=== PATIENT | female | born 1980 ===

== ENCOUNTER 2017-11-30 17:31 | Emergency (ER) | payer OTHER ==
--- OUTSIDE RECORDS SUMMARY | 2017-11-30 17:33 | XMS REPORT | Clinical Summary ---
:1980 Author Organization [facility] Address [address] [place] [address] Care Team Providers Name Role Phone Asked, No Pcp Primary Care Provider Unavailable Allergies No Known Allergies Current Medications Prescription Sig. Disp. Refills Start Date End Date Status butalbital-acetamino Take 1 tablet by 12 tablet 0 04/25/2017 05/25/2017 phen-caff (ESGIC) mouth every 4 50-325-40 mg per (four) hours as tablet needed for headaches for up to 30 days. Active Problems Not on file Encounters Date Type Specialty Care Team Description 04/25/2017 Emergency Emergency Medicine Huan Grant MD Closed head injury, initial encounter (Primary Dx) after 11/29/2016 Social History Tobacco Use Types Packs/Day Years Used Date Current Every Day Smoker Alcohol Use Drinks/Week oz/Week Comments No Sex Assigned at Date Recorded Not on file Last Filed Vital Signs Vital Sign Reading Time Taken Blood Pressure 112/77 04/25/2017 3:04 AM CDT Pulse 67 04/25/2017 3:04 AM CDT Temperature 36.1 C (97 F) 04/25/2017 3:04 AM CDT Respiratory Rate 16 04/25/2017 3:04 AM CDT Oxygen Saturation 98% 04/25/2017 3:04 AM CDT Inhaled Oxygen Concentration - - Weight - - Height 162.6 cm (5' 4") 04/25/2017 12:16 AM CDT Body Mass Index - - Plan of Treatment Health Maintenance Due Date Last Done Comments PAP SMEAR 2003 INFLUENZA VACCINE 04/14/[address] Head Wo Contrast (04/25/2017 2:21 AM) Specimen Performing Laboratory [facility] [address] [place] [address] Narrative EXAM: CT HEAD WO CONTRAST CLINICAL HISTORY: HEAD INJURY MODERATE OR SEVERE ACUTESTABLE TECHNIQUE: Noncontrast enhanced images of the brain were obtained from the skull base to the vertex. Both soft tissue and bone reconstruction algorithms were performed. CT scans are performed using radiation dose reduction techniques (iterative reconstruction and/or automated exposure control). Technical factors are evaluated and adjusted to ensure appropriate moderation of exposure. Automated dose management technology is applied to adjust radiation exposure while achieving a diagnostic quality image. COMPARISON:None. FINDINGS: Ventricles are normal in size and configuration. The anthony-white matter differentiation is preserved and without evidence of acute territorial infarction. There is no evidence for acute intracranial hemorrhage, mass, mass effect, hydrocephalus, or extra-axial fluid collection. Orbits are unremarkable. Patchy opacities are identified within the bilateral ethmoid air cells. Paranasal sinuses are otherwise clear. Mastoid air cells are normally pneumatized.Osseous structures are intact. IMPRESSION: No CT evidence for acute intracranial abnormality. [facility]-[id number] Procedure Note [facility], Radiology Results Incoming - 04/25/2017 2:36 AM CDT EXAM: CT HEAD WO CONTRAST CLINICAL HISTORY: HEAD INJURY MODERATE OR SEVERE ACUTE STABLE TECHNIQUE: Noncontrast enhanced images of the brain were obtained from the skull base to the vertex. Both soft tissue and bone reconstruction algorithms were performed. CT scans are performed using radiation dose reduction techniques (iterative reconstruction and/or automated exposure control). Technical factors are evaluated and adjusted to ensure appropriate moderation of exposure. Automated dose management technology is applied to adjust radiation exposure while achieving a diagnostic quality image. COMPARISON: None. FINDINGS: Ventricles are normal in size and configuration. The anthony-white matter differentiation is preserved and without evidence of acute territorial infarction. There is no evidence for acute intracranial hemorrhage, mass, mass effect, hydrocephalus, or extra-axial fluid collection. Orbits are unremarkable. Patchy opacities are identified within the bilateral ethmoid air cells. Paranasal sinuses are otherwise clear. Mastoid air cells are normally pneumatized. Osseous structures are intact. IMPRESSION: No CT evidence for acute intracranial abnormality. [facility]-[id number] hCG qualitative, urine screen (04/25/2017 1:35 AM) Component Value Ref Range hCG qualitative, urine NegativeComment: Sensitivity of HCG test: 25 mIU/mL Specimen Performing Laboratory Urine [facility] [id number] [place] [address] after 11/29/2016 Insurance Payer Benefit Plan / Group Subscriber ID Type Phone Address [employer] C[employer] OPEN ACCESS/NETWORK xxxxxxxxxxx O
[2017-11-30 20:07] LABS: Bicarbonate 24 mEq/L (21-31); Glucose Level 84 mg/dL (65-120); Potassium 3.8 mEq/L (3.6-5.0); Sodium Level 139 mEq/L (135-145)
[2017-11-30 20:08] LABS: BUN Blood Urea Nitrogen 12 mg/dL (6-20); Glomerular Filtration Rate > 90 mL/min (=/>90)
--- NOTE | 2017-11-30 20:11 | RAD REPORT ---
EXAM DESCRIPTION: CT - Head Brain Wo Cont - 11/30/2017 7:51 pm CLINICAL HISTORY: Headache COMPARISON: None. TECHNIQUE: Axial 5 mm thick images of the head were obtained without IV contrast. All CT scans are performed using dose optimization technique as appropriate and may include automated exposure control or mA/KV adjustment according to patient size. FINDINGS: No intracranial hemorrhage, mass, edema or shift of mid-line structures. No acute infarcti on changes seen. No abnormal extra-axial fluid collections. Ventricles are normal. Mastoid air cells and visualized portions of the paranasal sinuses are clear. No acute bony findings. IMPRESSION: Negative non-contrast CT head examination.
[2017-11-30 20:13] LABS: Absolute Lymphocytes (CBC) 3.2 K/uL (0.7-4.9); Absolute Monocytes 0.7 K/uL (0.1-1.3); Absolute Neutrophil 2.7 K/uL (1.8-8.0); Basophils % 1.7 % (0-1.3); Eosinophils % 2.7 % (0-4.4); Hematocrit 40.5 % (36.0-45.0); Lymphocytes % 46.8 % (15.3-44.8); MCH 33.1 pg (27.0-35.0); MPV 9.5 fL (7.6-11.3); Monocytes % 9.9 % (3.3-12.3); RBC Red Blood Cell Count 4.22 M/uL (3.86-4.86)
[2017-11-30 20:48] LABS: Urine Bacteria <20 /HPF (<20); Urine Culture Reflex Order NOT NEEDED; Urine RBC <5 /HPF (NONE SEEN)
[2017-11-30 20:51] LABS: Urine Blood TRACE (NEG); Urine Glucose NEGATIVE (NEG); Urine Protein NEGATIVE (NEG)
[2017-11-30 21:00] LABS: Blood Morphology Comment NOT SEEN (NOT SEEN); Platelet Estimate ADEQ; Urine White Blood Cell Casts OK
--- NOTE | 2017-11-30 21:26 | ER ---
Nurse's Notes [facility] Name: Patric Lin Age: 37 yrs Sex: Female : 1980 Arrival Date: 11/30/2017 Time: 17:34 Bed 16 Private MD: Sean Mckeon Diagnosis: Headache;Seasonal Allergies;Infectious mononucleosis Presentation: 11/30 17:40 Presenting complaint: Patient states: Reports headache to back of head and "cloudy aj vision" since Thursday. Ambulated with steady gait to triage. Transition of care: patient was not received from another setting of care. Onset of symptoms was November 28, 2017. Care prior to arrival: None. 17:40 Method Of Arrival: Ambulatory aj 17:40 Acuity: NISSA 3 aj Triage Assessment: 17:42 Headache History: The patient has had previous headaches. General: Appears in no aj apparent distress. comfortable, Behavior is calm, cooperative, appropriate for age. Pain: Complains of pain in occipital area and base of the skull Pain currently is 5 out of 10 on a pain scale. Pain began 2-3 days ago. Also complains of no other associated symptoms. Neuro: Level of Consciousness is awake, alert, obeys commands, Oriented to person, place, time, situation, Supervisor Dyer are equal bilaterally Moves all extremities. Full function Gait is steady, Speech is normal, Facial symmetry appears normal, Reports headache. Respiratory: Airway is patent Respiratory effort is even, unlabored, Respiratory pattern is. Derm: Skin is intact, is healthy with good turgor, Skin is pink, warm \\T\\ dry. normal. 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 - Social history:: Smoking status: Patient/guardian denies using tobacco. - Family history:: not pertinent. - Hospitalizations: : No recent hospitalization is reported. Screenin:12 Abuse screen: Denies threats or abuse. Denies injuries from another. Nutritional tc3 screening: No deficits noted. Tuberculosis screening: No symptoms or risk factors identified. Fall Risk None identified. Assessment: 19:37 General: Appears in no apparent distress. uncomfortable, Behavior is calm, cooperative. ar4 Pain: Complains of pain in occipital area and base of skull Pain radiates to Pt. reports, "The pain began earlier this morning and started in the front of my head and has moved to the back of my head now." Pain currently is 5 out of 10 on a pain scale. Quality of pain is described as heavy, pressure, throbbing, Pain began Pt. reports, "The pain began around 10:00 this morning, while I was at work." Is continuous, Alleviated by nothing. Aggravated by increased activity, Also complains of Pt. reports, "I have had diarrhea since Thursday and have just felt very tired and exhausted ever since.". Neuro: Level of Consciousness is awake, alert, obeys commands, Oriented to person, place, time, situation, Supervisor Dyer are equal bilaterally Moves all extremities. Speech is normal, Facial symmetry appears normal, Pupils are PERRLA. Neuro: Cardiovascular: Reports fatigue, Denies chest pain, shortness of breath, Heart tones S1 S2 present Capillary refill < 3 seconds is brisk in left fingers Patient's skin is warm and dry. Pulses are all present. Rhythm is sinus rhythm Chest pain is denied. Respiratory: Airway is patent Breath sounds are clear bilaterally. GI: Abdomen is flat, non-distended, Bowel sounds present X 4 quads. Abd is soft and non tender X 4 quads. GI: Reports diarrhea, Patient currently denies vomiting. : No signs and/or symptoms were reported regarding the genitourinary system. EENT: No signs and/or symptoms were reported regarding the EENT system. Derm: Skin is intact, is healthy with good turgor, Skin is dry, Skin is normal, Skin temperature is warm. Musculoskeletal: Range of motion: intact in all extremities. 20:29 Reassessment: Patient appears in no apparent distress at this time. No changes from tc3 previously documented assessment. Patient and/or family updated on plan of care and expected duration. Pain level reassessed. Patient is alert, oriented x 3, equal unlabored respirations, skin warm/dry/pink. Vital Signs: 17:42 BP 114 / 74; Pulse 80; Resp 16; Temp 98.4; Pulse Ox 98% on R/A; Weight 67.13 kg; Height aj 5 ft. 4 in. (162.56 cm); Pain 5/10; 19:10 BP 122 / 81; Pulse 61; Resp 18; Temp 98.3; Pulse Ox 98% on R/A; tc3 19:37 BP 116 / 81 RA Sitting (auto/); Pulse 67; Resp 16; Temp 98.3(O); Pulse Ox 100% on R/A; ar4 Pain 5/10; 20:41 BP 118 / 80; Pulse 63; Resp 16; Pulse Ox 98% on R/A; Pain 5/10; tc3 21:40 BP 114 / 82; Pulse 64; Resp 18; Pulse Ox 100% on R/A; ar4 17:42 Body Mass Index 25.40 (67.13 kg, 162.56 cm) aj [place] Coma Score: 21:21 Eye Response: spontaneous(4). Verbal Response: oriented(5). Motor Response: obeys rn commands(6). Total: 15. ED Course: 17:34 Patient arrived in ED. mr 17:34 Sean Mckeon MD is Private Physician. mr 17:42 Triage completed. aj 17:42 Arm band placed on right wrist. Patient placed in an exam room. aj 19:09 Suman Vera MD is Attending Physician. rn 19:12 Amira Rolon RN is Primary Nurse. tc3 19:13 Patient has correct armband on for positive identification. Bed in low position. Call tc3 light in reach. Side rails up X2. Pulse ox on. NIBP on. Verbal reassurance given. Pillow given. 19:40 Inserted saline lock: 20 gauge in right antecubital area, using aseptic technique. jb5 Blood collected. 19:41 Influenza Screen (a \\T\\ B) Sent. jb5 19:41 Strep Sent. jb5 19:41 Basic Metabolic Panel Sent. jb5 19:41 CBC with Diff Sent. jb5 19:52 CT completed. Patient tolerated procedure well. Patient moved to [place] via wheelchair. ga Patient moved back from IN. 20:08 Urine collected: clean catch specimen, clear. ar4 20:09 [place] Screen Profile Sent. tc3 20:43 Urine Microscopic Only Sent. tc3 21:23 Urine Dipstick--Ancillary (enter results) Sent. tc3 21:23 Urine --Ancillary (enter results) Sent. tc3 21:25 Sean Mckeon MD is Referral Physician. rn 21:40 IV discontinued, intact, bleeding controlled, No redness/swelling at site. Pressure ar4 dressing applied. 21:43 No provider procedures requiring assistance completed. ar4 Administered Medications: No medications were administered Outcome: :25 Discharge ordered by MD. rn 21:42 Discharged to home ambulatory. ar4 21:42 Condition: good 21:42 Discharge instructions given to patient, Instructed on discharge instructions, follow up and referral plans. Demonstrated understanding of instructions, follow-up care, Prescriptions given X None 21:44 Patient left the ED. ar4 21:52 Attestation : I concur with the documentation charted by DIANE Bowman. tc3 Signatures: Chelle Lynne RN RN aj Rivera, Maria mr Nieto, Roman, MD MD rn Jordan, Nathan nj Broussard, Jennifer jb5 Carter, Teresa, RN RN tc3 Noreen Wilson
--- NOTE | 2017-11-30 21:26 | EDPHYS ---
Physician Documentation [facility] Name: Patric Lin Age: 37 yrs Sex: Female : 1980 Arrival Date: 11/30/2017 Time: 17:34 Bed 16 Private MD: Sean Mckeon ED Physician Suman Vera HPI: 11/30 19:28 This 37 yrs old Unknown Female presents to ER via Ambulatory with complaints of Vision rn Problem, Headache. 19:28 The patient complains of pain to the base of the skull. The patient describes the rn headache as aching. Onset: The symptoms/episode began/occurred this morning. Associated signs and symptoms: Pertinent positives: malaise, Pertinent negatives: altered mental status, fever, rash, vision changes, vision loss, vomiting, vertigo. Severity of symptoms: At its worst the pain was mild, in the emergency department the pain has improved. The patient has not experienced similar symptoms in the past. The patient has not recently seen a physician. Reports headache, began today, no fever, + sore throat, malaise, generalized weakness, hurts at base of skull, no trauma, no vomiting, no focal neurological complaint. . 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 - Social history:: Smoking status: Patient/guardian denies using tobacco. - Family history:: not pertinent. - Hospitalizations: : No recent hospitalization is reported. ROS: 19:28 Constitutional: Negative for fever, chills, and weight loss, Eyes: Negative for injury, rn pain, redness, and discharge, Neck: Negative for injury, pain, and swelling, Cardiovascular: Negative for chest pain, palpitations, and edema, Respiratory: Negative for shortness of breath, cough, wheezing, and pleuritic chest pain, Abdomen/GI: Negative for abdominal pain, nausea, vomiting, diarrhea, and constipation, Back: Negative for injury and pain, MS/Extremity: Negative for injury and deformity, Skin: Negative for injury, rash, and discoloration, Neuro: Negative for numbness, tingling, and seizure. Exam: 19:28 Constitutional: This is a well developed, well nourished patient who is awake, alert, rn and in no acute distress. Head/Face: Normocephalic, atraumatic. Eyes: Pupils equal round and reactive to light, extra-ocular motions intact. Lids and lashes normal. Conjunctiva and sclera are non-icteric and not injected. Cornea within normal limits. Periorbital areas with no swelling, redness, or edema. Neck: Trachea midline, no thyromegaly or masses palpated, and no cervical lymphadenopathy. Supple, full range of motion without nuchal rigidity, or vertebral point tenderness. No Meningismus. Back: No spinal tenderness. No costovertebral tenderness. Full range of motion. Skin: Warm, dry with normal turgor. Normal color with no rashes, no lesions, and no evidence of cellulitis. MS/ Extremity: Pulses equal, no cyanosis. Neurovascular intact. Full, normal range of motion. Equal circumference. Neuro: Awake and alert, GCS 15, oriented to person, place, time, and situation. Cranial nerves II-XII grossly intact. Motor strength 5/5 in all extremities. Sensory grossly intact. Cerebellar exam normal. Vital Signs: 17:42 BP 114 / 74; Pulse 80; Resp 16; Temp 98.4; Pulse Ox 98% on R/A; Weight 67.13 kg; Height aj 5 ft. 4 in. (162.56 cm); Pain 5/10; 19:10 BP 122 / 81; Pulse 61; Resp 18; Temp 98.3; Pulse Ox 98% on R/A; tc3 19:37 BP 116 / 81 RA Sitting (auto/); Pulse 67; Resp 16; Temp 98.3(O); Pulse Ox 100% on R/A; ar4 Pain 5/10; 20:41 BP 118 / 80; Pulse 63; Resp 16; Pulse Ox 98% on R/A; Pain 5/10; tc3 21:40 BP 114 / 82; Pulse 64; Resp 18; Pulse Ox 100% on R/A; ar4 17:42 Body Mass Index 25.40 (67.13 kg, 162.56 cm) aj [place] Coma Score: 21:21 Eye Response: spontaneous(4). Verbal Response: oriented(5). Motor Response: obeys rn commands(6). Total: 15. MDM: 19:09 Patient medically screened. rn 21:21 Differential diagnosis: migraine, tension headache, vasomotor headache, mono, flu, rn strep, seasonal allergies. Data reviewed: vital signs, nurses notes, lab test result(s), radiologic studies, CT scan, and as a result, I will discharge patient. Counseling: I had a detailed discussion with the patient and/or guardian regarding: the historical points, exam findings, and any diagnostic results supporting the discharge/admit diagnosis, lab results, radiology results, the need for outpatient follow up, to return to the emergency department if symptoms worsen or persist or if there are any questions or concerns that arise at home. Response to treatment: the patient's symptoms have mildly improved after treatment, and as a result, I will discharge patient. Special discussion: I discussed with the patient/guardian in detail that at this point there is no indication for admission to the hospital. It is understood, however, that if the symptoms persist or worsen the patient needs to return immediately for re-evaluation. 11/30 19:19 Order name: CBC with Diff 11/30 19:19 Order name: Basic Metabolic Panel 11/30 19:19 Order name: Urine Microscopic Only 11/30 19:19 Order name: [place] Screen Profile 11/30 19:19 Order name: Influenza Screen (a \T\ B) 11/30 19:19 Order name: Strep 11/30 20:01 Order name: Influenza Screen (A ; Complete Time: 20:26 EDPR 11/30 20:01 Order name: Group A Streptococcus Rapid Sc; Complete Time: 20:26 EDPR 11/30 20:07 Order name: Basic Metabolic Panel; Complete Time: 20:26 EDPR 11/30 20:13 Order name: [place] Screen; Complete Time: 20:26 EDPR 11/30 20:15 Order name: CBC with Automated Diff; Complete Time: 21:08 EDPR 11/30 20:37 Order name: Urine Dipstick--Ancillary (enter results) mo 11/30 20:37 Order name: Urine --Ancillary (enter results) mo 11/30 20:49 Order name: Urine Microscopic Only; Complete Time: 21:08 EDPR 11/30 19:19 Order name: CT Head Brain wo Cont rn 11/30 19:19 Order name: IV Start; Complete Time: 19:41 rn 11/30 19:19 Order name: Urine Test (obtain specimen); Complete Time: 20:10 rn 11/30 19:19 Order name: Urine Dipstick-Ancillary (obtain specimen); Complete Time: 20:10 rn 11/30 19:19 Order name: EKG; Complete Time: 19:20 rn 11/30 19:19 Order name: EKG - Nurse/Tech; Complete Time: 20:08 rn 11/30 20:12 Order name: CT; Complete Time: 20:26 EDMS 11/30 20:51 Order name: Urine --Ancillary; Complete Time: 21:08 EDMS 11/30 20:51 Order name: Urine Dipstick-Ancillary; Complete Time: 21:08 EDMS 11/30 21:01 Order name: CBC Smear Scan; Complete Time: 21:08 EDMS Administered Medications: No medications were administered Disposition: 11/30/17 21:25 Discharged to Home. Impression: Headache, Seasonal Allergies, Infectious mononucleosis. - Condition is Stable. - Discharge Instructions: General Headache Without Cause, Infectious Mononucleosis. - Medication Reconciliation Form, Thank You Letter, Antibiotic Education, Prescription Opioid Use form. - Follow up: Sean Mckeon MD; When: As needed; Reason: Recheck today's complaints, Re-evaluation by your physician. - Problem is new. - Symptoms have improved. Signatures: Dispatcher [employer] Chelle Martino RN RN aj Nieto, Roman, MD MD rn Roberts, Amber ar4
--- NOTE | 2017-12-01 07:34 | EKG ---
Test Date: 2017-11-30 Test Time: 20:02:17 Crossbar Switch Adjuster: ISRA[place] MEASUREMENT RESULTS: Intervals: Rate: 54 WV: 136 QRSD: 80 QT: 422 QTc: 400 Scott: P: 43 WV: 136 QRS: 16 T: 38 INTERPRETIVE STATEMENTS: Sinus bradycardia Otherwise normal ECG Compared to ECG 01/27/2017 13:28:10 Sinus rhythm no longer present Electronically Signed On 12-01-17 07:33:41 CDT by Chace Zavala
== END 2017-11-30 21:44 | disposition home or self-care (01) ==
LOC: ER 17:31
DX: B27.90 Infectious mononucleosis, unspecified without complication (principal); J30.2 Other seasonal allergic rhinitis
CPT/HCPCS: 36415; 70450; 80048; 81003; 81015; 81025; 85025; 86308; 87070; 87081; 87804; 93005; 99285

== ENCOUNTER 2018-09-01 04:18 | Emergency (ER) | payer OTHER ==
--- OUTSIDE RECORDS SUMMARY | 2018-09-01 04:21 | XMS REPORT | Clinical Summary ---
:1980 [facility] Address [address] [place] [address] Care Team Providers Name Role Phone Asked, No Pcp Primary Care Provider Unavailable Allergies No Known Allergies Medications Medication Sig Dispensed Refills Start Date End Date Status loratadine (CLARITIN Take by mouth. 0 Active ORAL) methylPREDNISolone Take 1 tablet (4 21 tablet 0 08/03/2018 (MEDROL DOSEPAK) 4 mg mg total) by 8 tablet mouth See Admin Instructions for 5 days. Use as directed by package instructions Active Problems No known active problems Encounters Date Type Specialty Care Team Description 08/03/2018 Office Visit Orthopedic Surgery Sergey Garcia Lumbar radiculopathy Willy MATA MD (Primary Dx) after 08/31/2017 Family History Medical History Relation Name Comments Heart disease Father Diabetes Mother Hyperlipidemia Mother Hypertension Mother Relation Name Status Comments Father Mother Social History Tobacco Use Types Packs/Day Years Used Date Current Every Day Smoker Alcohol Use Drinks/Week oz/Week Comments No Sex Assigned at Date Recorded Not on file Job Start Date Occupation Industry Not on file Not on file Not on file Travel History Travel Start Travel End No recent travel history available. Last Filed Vital Signs Vital Sign Reading Time Taken Blood Pressure 111/63 08/03/2018 10:14 AM [employer]AURANT B[employer]END[employer] Pulse 78 08/03/2018 10:14 AM [employer] Temperature - - Respiratory Rate - - Oxygen Saturation - - Inhaled Oxygen Concentration - - Weight 65.8 kg (145 lb) 08/03/2018 10:14 AM [employer] Height 162.6 cm (5' 4") 08/03/2018 10:14 AM [employer] Body Mass Index 24.89 08/03/2018 10:14 AM [employer]AURANT [employer]END[employer] Plan of Treatment Date Type Specialty Care Team Description 09/24/2018 Appointment Radiology Sergey Garcia III, MD [address] [facility] [address] [place] [id number] Health Maintenance Due Date Last Done Comments CERVICAL CANCER SCREENING 2003 INFLUENZA VACCINE 04/14/2018 Procedures Procedure Name Priority Date/Time Associated Diagnosis Comments XR LUMBAR SPINE Routine 08/03/2018 10:27 Lumbar radiculopathy Results for this COMPLETE 4+ VW AM 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 after 08/31/2017 Results XR Lumbar Spine Complete 4+ Vw (08/03/2018 10:27 AM RESTAURANT B[employer]ENDER) Narrative Performed At Bar spine series of flexion-extension: Normal study.Hemostatic clips [facility] noted in right upper quadrant. Performing Organization Address City/State/Zipcode Phone Number [facility] [address] [place] [address] after 08/31/2017 Insurance Payer Benefit Plan / Group Subscriber ID Type Phone Address [employer] OPEN ACCESS/NETWORK xxxxxxxxxxx HMO Advance Directives Patient has advance care planning documents on file. For more information, please contact:Cristopher Elliott[address] [place] [address]
[2018-09-01] MEDS ORDERED: KETOROLAC 30 MG/ML INJ ONE (05:00)
[2018-09-01] MEDS ORDERED: NA CHLORIDE 0.9% 1,000 ML ONE (05:00)
[2018-09-01] MEDS ORDERED: METOCLOPRAMIDE 10 MG/2mL INJ ONE (05:00)
[2018-09-01] MEDS ORDERED: ONDANSETRON 4 MG/2 ML VIAL ONE (05:12)
--- NOTE | 2018-09-01 06:09 | EDPHYS ---
Physician Documentation [facility] Name: Patric Lin Age: 38 yrs Sex: Female : 1980 Arrival Date: 09/01/2018 Time: 04:21 Bed 8 Private MD: Sean Mckeon ED Physician Suman Vera HPI: 09/01 04:39 This 38 yrs old Unknown Female presents to ER via Ambulatory with complaints of rn Headache, Blurred Vision, Nausea, Ear Pain. 04:39 The patient complains of pain to the forehead, left methodist and face. The patient rn describes the headache as aching. Onset: The symptoms/episode began/occurred yesterday. Severity of symptoms: At its worst the pain was moderate, in the emergency department the pain is unchanged. The symptoms are alleviated by nothing. the symptoms are aggravated by nothing. The patient has experienced a previous episode. Reports headache that began yesterday, called insurance line, doctor prescribed steroids and amoxicillin, has not improved, feels deep pain, pain behind left eye and left side of head, with intermittent blurred vision and left ear pain. No trauma, no focal neurological complaint. Took tramadol and now with nausea. No neck pain or stiffness, no fever. . Historical: - Allergies: 04:38 No Known Allergies; jd3 - Home Meds: 04:38 Claritin 10 mg Oral tab 1 tab once daily [Active]; jd3 - PMHx: 04:38 seasonal allergies; jd3 - PSHx: 04:38 Cholecystectomy; splenectomy; jd3 - Immunization history:: Adult Immunizations up to date. - Social history:: Smoking status: Patient uses tobacco products, smokes one-half pack cigarettes per day. - Ebola Screening: : Patient negative for fever greater than or equal to 101.5 degrees Fahrenheit, and additional compatible Ebola Virus Disease symptoms. - Family history:: not pertinent. - Hospitalizations: : No recent hospitalization is reported. ROS: 04:39 Constitutional: Negative for fever, chills, and weight loss, Eyes: Negative for injury, rn redness, and discharge, Neck: Negative for injury, pain, and swelling, Cardiovascular: Negative for chest pain, palpitations, and edema, Respiratory: Negative for shortness of breath, cough, wheezing, and pleuritic chest pain, Abdomen/GI: Negative for abdominal pain, vomiting, diarrhea, and constipation, MS/Extremity: Negative for injury and deformity, Skin: Negative for injury, rash, and discoloration, Neuro: Negative for numbness, tingling, and seizure. Exam: 04:39 Constitutional: This is a well developed, well nourished patient who is awake, alert, rn and in no acute distress. Ambulatory to room without assistance or difficulty. Head/Face: Normocephalic, atraumatic. Eyes: Pupils equal round and reactive to light, extra-ocular motions intact. Lids and lashes normal. Conjunctiva and sclera are non-icteric and not injected. Cornea within normal limits. Periorbital areas with no swelling, redness, or edema. ENT: Nares patent. No nasal discharge, no septal abnormalities noted. Tympanic membranes are normal and external auditory canals are clear. Oropharynx with no redness, swelling, or masses, exudates, or evidence of obstruction, uvula midline. Mucous membranes moist. No tenderness over temporal artery. Neck: Trachea midline, no thyromegaly or masses palpated, and no cervical lymphadenopathy. Supple, full range of motion without nuchal rigidity, or vertebral point tenderness. No Meningismus. Skin: Warm, dry with normal turgor. Normal color with no rashes, no lesions, and no evidence of cellulitis. MS/ Extremity: Pulses equal, no cyanosis. Neurovascular intact. Full, normal range of motion. Equal circumference. Neuro: Awake and alert, GCS 15, oriented to person, place, time, and situation. Cranial nerves II-XII grossly intact. Motor strength 5/5 in all extremities. Sensory grossly intact. Cerebellar exam normal. Normal gait. Vital Signs: 04:39 BP 115 / 66; Pulse 76; Resp 16 S; Temp 97.9(O); Pulse Ox 100% on R/A; Weight 65.77 kg jd3 (R); Height 5 ft. 4 in. (162.56 cm) (R); Pain 5/10; 06:09 BP 105 / 57; Pulse 54; Resp 16; Pulse Ox 99% on R/A; ak1 04:39 Body Mass Index 24.89 (65.77 kg, 162.56 cm) jd3 [place] Coma Score: 06:04 Eye Response: spontaneous(4). Verbal Response: oriented(5). Motor Response: obeys rn commands(6). Total: 15. MDM: 04:23 Patient medically screened. rn 06:04 Differential diagnosis: cluster headache, migraine, neoplasm, sinusitis, tension rn headache, vasomotor headache, ocular migraine. Data reviewed: vital signs, nurses notes, radiologic studies, CT scan, and as a result, I will discharge patient. Counseling: I had a detailed discussion with the patient and/or guardian regarding: the historical points, exam findings, and any diagnostic results supporting the discharge/admit diagnosis, radiology results, the need for outpatient follow up, to return to the emergency department if symptoms worsen or persist or if there are any questions or concerns that arise at home. Response to treatment: the patient's symptoms have mildly improved after treatment. Special discussion: I discussed with the patient/guardian in detail that at this point there is no indication for admission to the hospital. It is understood, however, that if the symptoms persist or worsen the patient needs to return immediately for re-evaluation. Based on the history and exam findings, there is no indication for further emergent testing or inpatient evaluation. I discussed with the patient/guardian the need to see the neurologist for further evaluation of the symptoms. 06:04 ED course: Most likely migraine vs ocular migraine given ocular symptoms, normal neuro rn exam, negative ct head. . 09/01 04:36 Order name: CT Head Brain wo Cont rn 09/01 04:36 Order name: IV Start; Complete Time: 05:06 rn Administered Medications: 05:05 Drug: NS 0.9% 1000 ml Route: IV; Rate: 1000 ml; Site: right antecubital; jd3 06:37 Follow up: IV Status: Completed infusion; IV Intake: 875ml ak1 05:06 Drug: Reglan 10 mg Route: IVP; Site: right antecubital; jd3 05:33 Follow up: Response: No adverse reaction ak1 05:06 Drug: TORadol 30 mg Route: IVP; Site: right antecubital; jd3 05:33 Follow up: Response: No adverse reaction ak1 05:06 Drug: Zofran 4 mg Route: IVP; Site: right antecubital; jd3 05:33 Follow up: Response: No adverse reaction ak1 Disposition: 09/01/18 06:08 Discharged to Home. Impression: Headache. - Condition is Stable. - Discharge Instructions: General Headache Without Cause. - Medication Reconciliation Form, Thank You Letter, Antibiotic Education, Prescription Opioid Use form. - Follow up: Paul Leiva MD; When: As needed; Reason: Recheck today's complaints, Re-evaluation by your physician. - Problem is new. - Symptoms have improved. Signatures: Dispatcher [employer] EDMS Suman Vera MD MD rn Krenek, Amber RN RN ak1 Lester Restrepo RN RN jd3 Corrections: (The following items were deleted from the chart) 06:44 06:08 09/01/2018 06:08 Discharged to Home. Impression: Headache. Condition is Stable. ak1 Forms are Medication Reconciliation Form, Thank You Letter, Antibiotic Education, Prescription Opioid Use. Follow up: Paul Leiva; When: As needed; Reason: Recheck today's complaints, Re-evaluation by your physician. Problem is new. Symptoms have improved. rn
--- NOTE | 2018-09-01 06:09 | ER ---
Nurse's Notes [facility] Name: Patric Lin Age: 38 yrs Sex: Female : 1980 Arrival Date: 09/01/2018 Time: 04:21 Bed 8 Private MD: Sean Mckeon Diagnosis: Headache Presentation: 09/01 04:34 Presenting complaint: Patient states: " I have had a bad headache on the left side of jd3 my head.". Transition of care: patient was not received from another setting of care. Onset of symptoms was August 26, 2018. Risk Assessment: Do you want to hurt yourself or someone else? Patient reports no desire to harm self or others. Initial Sepsis Screen: Does the patient meet any 2 criteria? No. Patient's initial sepsis screen is negative. Does the patient have a suspected source of infection? No. Patient's initial sepsis screen is negative. Care prior to arrival: None. 04:34 Method Of Arrival: Ambulatory jd3 04:34 Acuity: NISSA 3 jd3 Triage Assessment: 05:32 Headache History: Denies prior headaches. General: Appears in no apparent distress. ak1 Behavior is calm, cooperative. Pain: Pain began . Pain: Pain currently is 5 out of 10 on a pain scale. Also complains of sleeplessness. Historical: - Allergies: 04:38 No Known Allergies; jd3 - Home Meds: 04:38 Claritin 10 mg Oral tab 1 tab once daily [Active]; jd3 - PMHx: 04:38 seasonal allergies; jd3 - PSHx: 04:38 Cholecystectomy; splenectomy; jd3 - Immunization history:: Adult Immunizations up to date. - Social history:: Smoking status: Patient uses tobacco products, smokes one-half pack cigarettes per day. - Ebola Screening: : Patient negative for fever greater than or equal to 101.5 degrees Fahrenheit, and additional compatible Ebola Virus Disease symptoms. - Family history:: not pertinent. - Hospitalizations: : No recent hospitalization is reported. Screenin:40 Abuse screen: Denies threats or abuse. Nutritional screening: No deficits noted. jd3 Tuberculosis screening: No symptoms or risk factors identified. Fall Risk Ambulatory Aid- None/Bed Rest/Nurse Assist (0 pts). Gait- Normal/Bed Rest/Wheelchair (0 pts) Mental Status- Oriented to own ability (0 pts). Total Neal Fall Scale indicates No Risk (0-24 pts). Assessment: 04:55 General: Appears in no apparent distress. Behavior is calm, cooperative. Pain: ak1 Complains of pain in left ear, left eye and left judaism. Neuro: Level of Consciousness is awake, alert, obeys commands, Oriented to person, place, time, situation, Deburring Technician are equal bilaterally Moves all extremities. Gait is steady, Speech is normal, Facial symmetry appears normal, Pupils are PERRLA, Reports blurred vision in iris of left eye since when lying down. pt c/o increased pain behind the left eye while lying down. headache. Cardiovascular: No deficits noted. Respiratory: No deficits noted. GI: No signs and/or symptoms were reported involving the gastrointestinal system. : No signs and/or symptoms were reported regarding the genitourinary system. EENT: Reports nasal congestion since pain in left ear. Derm: No signs and/or symptoms reported regarding the dermatologic system. Musculoskeletal: No signs and/or symptoms reported regarding the musculoskeletal system. 06:08 Reassessment: Patient appears in no apparent distress at this time. Patient is alert, ak1 oriented x 3, equal unlabored respirations, skin warm/dry/pink. pt informed of typical wait time for CT and lab results. will continue to monitor. Patient states feeling better. Patient states symptoms have improved. Vital Signs: 04:39 BP 115 / 66; Pulse 76; Resp 16 S; Temp 97.9(O); Pulse Ox 100% on R/A; Weight 65.77 kg jd3 (R); Height 5 ft. 4 in. (162.56 cm) (R); Pain 5/10; 06:09 BP 105 / 57; Pulse 54; Resp 16; Pulse Ox 99% on R/A; ak1 04:39 Body Mass Index 24.89 (65.77 kg, 162.56 cm) jd3 [place] Coma Score: 06:04 Eye Response: spontaneous(4). Verbal Response: oriented(5). Motor Response: obeys rn commands(6). Total: 15. ED Course: 04:21 Patient arrived in ED. es 04:22 Sean Mckeon MD is Private Physician. es 04:23 Suman Vera MD is Attending Physician. rn 04:36 Triage completed. jd3 04:40 Arm band placed on. jd3 04:41 Patient has correct armband on for positive identification. Bed in low position. Call jd3 light in reach. Side rails up X 1. 04:45 CT completed. Patient tolerated procedure well. Patient moved to CT. Patient moved back mw3 from CT. 04:55 Noreen Weaver, RN is Primary Nurse. ak1 04:55 Pulse ox on. NIBP on. ak1 05:03 Inserted saline lock: 20 gauge in right antecubital area, using aseptic technique. jd3 Blood collected. 05:12 CT Head Brain wo Cont In Process Unspecified. EDMS 06:06 Paul Leiva MD is Referral Physician. rn 06:38 No provider procedures requiring assistance completed. IV discontinued, intact, ak1 bleeding controlled, No redness/swelling at site. Pressure dressing applied. Administered Medications: 05:05 Drug: NS 0.9% 1000 ml Route: IV; Rate: 1000 ml; Site: right antecubital; jd3 06:37 Follow up: IV Status: Completed infusion; IV Intake: 875ml ak1 05:06 Drug: Reglan 10 mg Route: IVP; Site: right antecubital; jd3 05:33 Follow up: Response: No adverse reaction ak1 05:06 Drug: TORadol 30 mg Route: IVP; Site: right antecubital; jd3 05:33 Follow up: Response: No adverse reaction ak1 05:06 Drug: Zofran 4 mg Route: IVP; Site: right antecubital; jd3 05:33 Follow up: Response: No adverse reaction ak1 Intake: 06:37 IV: 875ml; Total: 875ml. ak1 Outcome: 06:08 Discharge ordered by . rn 06:38 Discharged to home ambulatory, with family. ak1 06:38 Condition: improved 06:38 Discharge instructions given to patient, Instructed on discharge instructions, follow up and referral plans. Demonstrated understanding of instructions, follow-up care. 06:44 Patient left the ED. ak1 Signatures: Dispatcher [employer] EDVT Yoanna Tran Roman, MD MD rn Krenek, Amber, RN RN ak1 Lester Restrepo RN RN Kena Mckinnon mw3
--- NOTE | 2018-09-01 07:07 | RAD REPORT ---
EXAM DESCRIPTION: CT - Head Brain Wo Cont - 09/01/2018 6:25 am CLINICAL HISTORY: Left-sided headache, blurred vision, ear pain A preliminary report was provided at the time of the study and reviewed prior to final report. COMPARISON: CT imaging November 2017 TECHNIQUE: Axial 5 mm thick images of the head were obtained without IV contrast. All CT scans are performed using dose optimization technique as appropriate and may include automated exposure control or mA/KV adjustment according to patient size. FINDINGS: No intracranial hemorrhage, mass, edema or shift of mid-line structures. No acute infarcti on changes seen. No abnormal extra-axial fluid collections. Ventricles are normal. Mastoid air cells and visualized portions of the paranasal sinuses are clear. Middle ear is clear. No external auditory canal abnormality. No acute bony findings. IMPRESSION: Negative non-contrast CT head examination.
== END 2018-09-01 06:44 | disposition home or self-care (01) ==
LOC: ER 04:18
DX: R51 Headache (principal); J30.2 Other seasonal allergic rhinitis; F17.210 Nicotine dependence, cigarettes, uncomplicated
CPT/HCPCS: 70450; 96361; 96374; 96375; 99284; J2405; J2765; J7030

== ENCOUNTER 2018-11-16 22:52 | Emergency (ER) | payer OTHER ==
--- OUTSIDE RECORDS SUMMARY | 2018-11-16 22:55 | XMS REPORT | Clinical Summary ---
:1980 Author Organization [facility] Address [address] [place] [address] Care Team Providers Name Role Phone Asked, [...] radiculopathy Willy MATA MD (Primary Dx) after 11/15/2017 Family History Medical History Relation Name Comments [...] Taken Blood Pressure 111/63 08/03/2018 10:14 AM MULTIMEDIA ARTIST Pulse 78 08/03/2018 10:14 AM MULTIMEDIA ARTIST Temperature - - Respiratory Rate - - Oxygen Saturation - - Inhaled Oxygen Concentration - - Weight 65.8 kg (145 lb) 08/03/2018 10:14 AM MULTIMEDIA ARTIST Height 162.6 cm (5' 4") 08/03/2018 10:14 AM MULTIMEDIA ARTIST Body Mass Index 24.89 08/03/2018 10:14 AM MULTIMEDIA ARTIST Plan of Treatment Health Maintenance Due Date Last Done Comments CERVICAL CANCER SCREENING 2003 INFLUENZA VACCINE 04/14/2018 Procedures Procedure Name Priority Date/Time Associated Diagnosis Comments XR LUMBAR SPINE Routine 08/03/2018 10:27 Lumbar radiculopathy Results for this COMPLETE 4+ VW AM MULTIMEDIA ARTIST procedure are in the results section. after 11/15/2017 Results XR Lumbar Spine Complete 4+ Vw (08/03/2018 10:27 AM MULTIMEDIA ARTIST) Narrative Performed At Bar spine series of flexion-extension: Normal study.Hemostatic clips [facility] noted in right upper quadrant. Performing Organization Address City/State/Zipcode Phone Number [facility] [address] [place] [address] after 11/15/2017 Insurance Payer Benefit Plan / Group Subscriber ID Type Phone Address [employer] [facility] OPEN ACCESS/NETWORK xxxxxxxxxxx HMO Advance Directives Patient has advance care planning documents on file. For more information, please contact:Cristopher Elliott[address] [place] [address]
[2018-11-17] MEDS ORDERED: ONDANSETRON 4 MG/2 ML VIAL ONE (00:25)
[2018-11-17] MEDS ORDERED: FENTANYL CITR 100 MCG/2 ML ONE (00:25)
[2018-11-17] MEDS ORDERED: PANTOPRAZOLE 40 MG INJ ONE (00:25)
[2018-11-17] MEDS ORDERED: NA CHLORIDE 0.9% 1,000 ML ONE (00:27)
[2018-11-17 00:36] LABS: Absolute Lymphocytes (CBC) 1.3 K/uL (0.7-4.9); Absolute Monocytes 0.4 K/uL (0.1-1.3); Basophils % 0.6 % (0-1.3); Eosinophils % 0.3 % (0-4.4); Hematocrit 45.8 % (36.0-45.0); Lymphocytes % 10.8 % (15.3-44.8); MPV 8.7 fL (7.6-11.3); Monocytes % 3.5 % (3.3-12.3); RBC Red Blood Cell Count 4.78 M/uL (3.86-4.86)
[2018-11-17 00:54] LABS: ALT/SGPT 24 U/L (12-78); AST/SGOT 16 U/L (15-37); Albumin 4.4 g/dL (3.4-5.0); Alkaline Phosphatase 66 U/L (45-117); BUN Blood Urea Nitrogen 14 mg/dL (7-18); Bicarbonate 27 mmol/L (21-32); Bilirubin Direct 0.1 mg/dL (0-0.2); Bilirubin Total 0.4 mg/dL (0.2-1.0); Glucose Level 115 mg/dL (74-106); Lipase 103 U/L (73-393); Potassium 3.9 mmol/L (3.5-5.1); Protein, Total 8.4 g/dL (6.4-8.2); Sodium Level 139 mmol/L (136-145)
[2018-11-17] MEDS ORDERED: LIDOCAINE VISCOUS 2% SOLN 15 ML UDC ONE (01:58)
[2018-11-17] MEDS ORDERED: MAGNE/ALUM HYDROXD 30 ML UCUP ONE (01:58)
--- NOTE | 2018-11-17 03:36 | ER ---
Nurse's Notes [facility] Name: Patric Lin Age: 38 yrs Sex: Female : 1980 Arrival Date: 11/16/2018 Time: 22:58 Bed 16 Private MD: Sean Mckeon Diagnosis: Nausea and vomiting;Upper abdominal pain, unspecified Presentation: 11/16 23:10 Presenting complaint: Patient states: that she is having abd cramping all over. Also fc having nausea and vomiting. Denies any diarrhea. Transition of care: patient was not received from another setting of care. Onset of symptoms was November 16, 2018 at 16:00. Risk Assessment: Do you want to hurt yourself or someone else? Patient reports no desire to harm self or others. Initial Sepsis Screen: Does the patient meet any 2 criteria? No. Patient's initial sepsis screen is negative. Does the patient have a suspected source of infection? No. Patient's initial sepsis screen is negative. Care prior to arrival: Medication(s) given: Pepto at 1830 and Nexium at 2000. 23:10 Method Of Arrival: Ambulatory 23:10 Acuity: NISSA 3 Triage Assessment: 23:37 General: Appears in no apparent distress. uncomfortable, Behavior is cooperative, cc3 anxious. Pain: Complains of pain in epigastric area. EENT: No signs and/or symptoms were reported regarding the EENT system. Neuro: Level of Consciousness is awake, alert, obeys commands, Oriented to person, place, time, situation, Appropriate for age. Cardiovascular: Patient's skin is warm and dry. Respiratory: Airway is patent Respiratory effort is even, unlabored, Respiratory pattern is regular, symmetrical. GI: Abdomen is flat, non-distended. : No signs and/or symptoms were reported regarding the genitourinary system. Derm: No signs and/or symptoms reported regarding the dermatologic system. Musculoskeletal: Circulation, motion, and sensation intact. Range of motion: intact in all extremities. DIRECTOR OF VENDOR MANAGEMENT: 23:10 LMP 11/12/2018 fc Historical: - Allergies: 23:15 No Known Allergies; fc - Home Meds: 23:15 Nexium 20 mg Oral cpDR 1 cap once daily [Active]; fc - PMHx: 23:15 seasonal allergies; GERD; fc - PSHx: 23:15 Cholecystectomy; splenectomy; fc - Immunization history:: Last tetanus immunization: up to date Flu vaccine is not up to date. - Social history:: Smoking status: Patient uses tobacco products, smokes one-half pack cigarettes per day, Patient/guardian denies using alcohol, street drugs. - Ebola Screening: : Patient negative for fever greater than or equal to 101.5 degrees Fahrenheit, and additional compatible Ebola Virus Disease symptoms Patient denies exposure to infectious person Patient denies travel to an Ebola-affected area in the 21 days before illness onset. Screenin:15 Abuse screen: Denies threats or abuse. Nutritional screening: No deficits noted. fc Tuberculosis screening: No symptoms or risk factors identified. Fall Risk None identified. Assessment: 23:37 General: see triage assessment. cc3 23:37 GI: Bowel sounds present X 4 quads. Abd is soft and non tender. cc3 11/17 00:25 Reassessment: Patient appears in no apparent distress at this time. Patient and/or cc3 family updated on plan of care and expected duration. Pain level reassessed. Patient is alert, oriented x 3, equal unlabored respirations, skin warm/dry/pink. 01:18 Reassessment: Patient appears in no apparent distress at this time. Patient and/or cc3 family updated on plan of care and expected duration. Pain level reassessed. Patient is alert, oriented x 3, equal unlabored respirations, skin warm/dry/pink. 02:36 Reassessment: Patient appears in no apparent distress at this time. Patient and/or cc3 family updated on plan of care and expected duration. Pain level reassessed. Patient is alert, oriented x 3, equal unlabored respirations, skin warm/dry/pink. 03:50 Reassessment: Patient appears in no apparent distress at this time. Patient and/or cc3 family updated on plan of care and expected duration. Pain level reassessed. Patient is alert, oriented x 3, equal unlabored respirations, skin warm/dry/pink. PA Page discharged the patient home with prescriptions given. IV cannula removed and patient left ER vitally stable and ambulatory. Patient denies pain at this time. Patient states feeling better. Patient states symptoms have improved. Vital Signs: 11/16 23:10 Weight 65.77 kg (R); Height 5 ft. 4 in. (162.56 cm) (R); Pain 10/10; fc 23:27 BP 106 / 64; Pulse 62; Resp 20; Temp 97.9; Pulse Ox 97% ; lt1 11/17 00:31 BP 120 / 64; Pulse 63; Resp 17 S; Pulse Ox 99% on R/A; cc3 01:19 BP 107 / 66; Pulse 60; Resp 18 S; Pulse Ox 99% on R/A; cc3 02:40 BP 110 / 63; Pulse 61; Resp 17 S; Pulse Ox 99% on R/A; cc3 03:45 BP 105 / 61; Pulse 63; Resp 17 S; Pulse Ox 98% on R/A; cc3 11/16 23:10 Body Mass Index 24.89 (65.77 kg, 162.56 cm) fc ED Course: 11/16 22:58 Patient arrived in ED. es 22:58 Sean Mckeon MD is Private Physician. es 23:10 Arm band placed on Patient placed in an exam room, on a stretcher. fc 23:14 Triage completed. fc 23:15 Job Guzman PA is PHCP. cp 23:15 Job Bruce MD is Attending Physician. cp 23:15 Patient has correct armband on for positive identification. Placed in gown. Bed in low fc position. Call light in reach. 23:37 Bren Mesa is Primary Nurse. cc3 03 00:23 Inserted saline lock: 22 gauge in left antecubital area, using aseptic technique. lt1 00:23 Initial lab(s) drawn, by me, sent to lab. lt1 02:[address] via wheelchair. kw1 02:45 CT completed. Patient tolerated procedure well. Patient moved back from CT. kw1 03:06 CT Abd/Pelvis - W/Contrast: give oral contrast In Process Unspecified. EDMS 03:50 No provider procedures requiring assistance completed. IV discontinued, intact, cc3 bleeding controlled, No redness/swelling at site. Pressure dressing applied. Administered Medications: 00:25 Drug: NS 0.9% 1000 ml Route: IV; Rate: 1 bolus; Site: left antecubital; cc3 01:30 Follow up: Response: No adverse reaction; IV Status: Completed infusion; IV Intake: cc3 1000ml 00:26 Drug: fentaNYL (PF) 25 mcg Route: IVP; Site: left antecubital; cc3 01:30 Follow up: Response: No adverse reaction; Pain is unchanged, physician notified cc3 00:30 Drug: ProTONIX 40 mg Route: IVP; Site: left antecubital; cc3 01:30 Follow up: Response: No adverse reaction cc3 00:33 Drug: Zofran 4 mg Route: IVP; Site: left antecubital; cc3 01:30 Follow up: Response: No adverse reaction; Nausea is decreased cc3 01:45 Drug: GI Cocktail without - (Maalox Suspension 30 ml, Lidocaine Liquid 2 % 15 cc3 ml) Route: PO; 03:00 Follow up: Response: No adverse reaction; Pain is decreased cc3 Intake: 01:30 IV: 1000ml; Total: 1000ml. cc3 Outcome: 03:35 Discharge ordered by MD. cp 03:50 Discharged to home ambulatory. cc3 03:50 Condition: stable 03:50 Discharge instructions given to patient, Instructed on discharge instructions, follow up and referral plans. medication usage, Demonstrated understanding of instructions, follow-up care, medications, Prescriptions given X 4. 04:01 Patient left the ED. cc3 Signatures: Dispatcher [employer] Yoanna Cotton Felicia, RN RN Job Petersen PA PA cp Wilhelm, Kimberly kw1 Bren Mesa cc3 Sabrina Mari 1 Corrections: (The following items were deleted from the chart) 01:21 01:19 BP 107 / 66; Pulse 59bpm; Resp 18bpm; Spontaneous; Pulse Ox 99% RA; cc3 cc3
--- NOTE | 2018-11-17 03:36 | EDPHYS ---
Physician Documentation [facility] Name: Patric Lin Age: 38 yrs Sex: Female : 1980 Arrival Date: 11/16/2018 Time: 22:58 Bed 16 Private MD: Sean Mckeon ED Physician Job Bruce HPI: 11/17 00:00 This 38 yrs old Unknown Female presents to ER via Ambulatory with complaints of cp Abdominal Pain, Nausea/Vomiting. 00:00 The patient presents with abdominal pain in the epigastric area, in the upper abdomen. cp 00:00 Onset: The symptoms/episode began/occurred today. The symptoms do not radiate. cp Associated signs and symptoms: Pertinent negatives: blood in stools, diarrhea, fever, vomiting blood. 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 - Social history:: Smoking status: Patient uses tobacco products, smokes one-half pack cigarettes per day, Patient/guardian denies using alcohol, street drugs. - Ebola Screening: : Patient negative for fever greater than or equal to 101.5 degrees Fahrenheit, and additional compatible Ebola Virus Disease symptoms Patient denies exposure to infectious person Patient denies travel to an Ebola-affected area in the 21 days before illness onset. ROS: 11/17 00:05 Constitutional: Negative for body aches, chills, fever. cp 00:05 Eyes: Negative for injury, pain, redness, and discharge. cp 00:05 ENT: Negative for drainage from ear(s), ear pain, sore throat, difficulty swallowing, difficulty handling secretions. 00:05 Cardiovascular: Negative for chest pain, palpitations. 00:05 Respiratory: Negative for cough, shortness of breath, wheezing. 00:05 Abdomen/GI: Positive for abdominal pain, nausea, vomiting, Negative for diarrhea, constipation, hematemesis, black/tarry stool, rectal bleeding. 00:05 Back: Negative for pain at rest, pain with movement, radiated pain. 00:05 : Negative for urinary symptoms. 00:05 Skin: Negative for cellulitis, rash. 00:05 Neuro: Negative for altered mental status, headache, weakness. 00:05 All other systems are negative. Exam: 00:10 Constitutional: The patient appears in no acute distress, alert, awake, cp non-diaphoretic, non-toxic, well developed, well nourished. 00:10 Head/Face: Normocephalic, atraumatic. cp 00:10 Eyes: Periorbital structures: appear normal, Conjunctiva: normal, no exudate, no injection, Sclera: no appreciated abnormality, Lids and lashes: appear normal, bilaterally. 00:10 ENT: External ear(s): are unremarkable, Nose: is normal, Mouth: Lips: moist, Oral mucosa: moist, Posterior pharynx: Airway: no evidence of obstruction, patent. 00:10 Chest/axilla: Inspection: normal, Palpation: is normal, no crepitus, no tenderness. 00:10 Cardiovascular: Rate: normal, Rhythm: regular. 00:10 Respiratory: the patient does not display signs of respiratory distress, Respirations: normal, no use of accessory muscles, no retractions, no splinting, no tachypnea, labored breathing, is not present, Breath sounds: are clear throughout, no decreased breath sounds, no stridor, no wheezing. 00:10 Abdomen/GI: Inspection: scar(s), Bowel sounds: active, all quadrants, Palpation: soft, in all quadrants, moderate abdominal tenderness, in the epigastric area, rebound tenderness, is not appreciated, involuntary guarding, is not appreciated. 00:10 Back: pain, is absent, ROM is normal. 00:10 Skin: cellulitis, is not appreciated, no rash present. Vital Signs: 11/16 23:10 Weight 65.77 kg (R); Height 5 ft. 4 in. (162.56 cm) (R); Pain 06/23; fc 23:27 BP 106 / 64; Pulse 62; Resp 20; Temp 97.9; Pulse Ox 97% ; lt1 11/17 00:31 BP 120 / 64; Pulse 63; Resp 17 S; Pulse Ox 99% on R/A; cc3 01:19 BP 107 / 66; Pulse 60; Resp 18 S; Pulse Ox 99% on R/A; cc3 02:40 BP 110 / 63; Pulse 61; Resp 17 S; Pulse Ox 99% on R/A; cc3 03:45 BP 105 / 61; Pulse 63; Resp 17 S; Pulse Ox 98% on R/A; cc3 11/16 23:10 Body Mass Index 24.89 (65.77 kg, 162.56 cm) fc MDM: 11/16 23:15 Patient medically screened. cp 11/17 00:00 Differential diagnosis: bowel obstruction, gastritis, non-specific abd pain, cp pancreatitis, Peptic Ulcer Disease, Perf. Duodenal Ulcer, Perf. Gastric Ulcer, Ureterolithiasis, urinary tract infection. 03:33 Data reviewed: vital signs, nurses notes, lab test result(s), radiologic studies, CT cp scan. 03:33 Counseling: I had a detailed discussion with the patient and/or guardian regarding: the cp historical points, exam findings, and any diagnostic results supporting the discharge/admit diagnosis, lab results, radiology results, to return to the emergency department if symptoms worsen or persist or if there are any questions or concerns that arise at home. Response to treatment: the patient's symptoms have markedly improved after treatment, VSS. Nausea improved and vomiting resolved, and as a result, I will discharge patient. 11/16 23:54 Order name: Basic Metabolic Panel; Complete Time: 01:00 cp 11/17 01:00 Interpretation: Normal except: GLUC 115. cp 11/16 23:54 Order name: CBC with Diff; Complete Time: 01:00 cp 11/16 23:54 Order name: Creatinine for Radiology; Complete Time: 01:00 cp 11/16 23:54 Order name: Hepatic Function; Complete Time: 01:00 cp 11/16 23:54 Order name: Lipase; Complete Time: 01:00 cp 11/17 03:16 Order name: Urine Dipstick--Ancillary (enter results) ed1 03 23:54 Order name: IV Saline Lock; Complete Time: 00:41 cp 11/16 23:54 Order name: CT Abd/Pelvis - W/Contrast: give oral contrast cp 11/17 03:16 Order name: Urine --Ancillary (enter results) ed1 11/16 23:54 Order name: Labs collected and sent; Complete Time: 00:41 cp 11/16 23:54 Order name: Urine Dipstick-Ancillary (obtain specimen); Complete Time: 03:21 cp 11/16 23:54 Order name: Urine Test (obtain specimen); Complete Time: 03:21 cp Administered Medications: 00:25 Drug: NS 0.9% 1000 ml Route: IV; Rate: 1 bolus; Site: left antecubital; cc3 01:30 Follow up: Response: No adverse reaction; IV Status: Completed infusion; IV Intake: cc3 1000ml 00:26 Drug: fentaNYL (PF) 25 mcg Route: IVP; Site: left antecubital; cc3 01:30 Follow up: Response: No adverse reaction; Pain is unchanged, physician notified cc3 00:30 Drug: ProTONIX 40 mg Route: IVP; Site: left antecubital; cc3 01:30 Follow up: Response: No adverse reaction cc3 00:33 Drug: Zofran 4 mg Route: IVP; Site: left antecubital; cc3 01:30 Follow up: Response: No adverse reaction; Nausea is decreased cc3 01:45 Drug: GI Cocktail without - (Maalox Suspension 30 ml, Lidocaine Liquid 2 % 15 cc3 ml) Route: PO; 03:00 Follow up: Response: No adverse reaction; Pain is decreased cc3 Disposition: 11:15 Co-signature as Attending Physician, Job Bruce MD I agree with the assessment and tonya plan of care. Disposition: 11/17/18 03:35 Discharged to Home. Impression: Nausea and vomiting, Upper abdominal pain, unspecified. - Condition is Stable. - Discharge Instructions: Abdominal Pain, Adult, Nausea and Vomiting, Adult. - Prescriptions for Pepcid 20 mg Oral Tablet - take 1 tablet by ORAL route every 12 hours for 10 days; 20 tablet. Zofran 4 mg Oral Tablet - take 1 tablet by ORAL route every 12 hours As needed; 20 tablet. Phenergan 25 mg Rectal Suppository - insert 1 suppository by RECTAL route every 6 hours As needed; 12 suppository. Bentyl 20 mg Oral Tablet - take 1 tablet by ORAL route every 6 hours As needed; 30 tablet. - Medication Reconciliation Form, Thank You Letter, Antibiotic Education, Prescription Opioid Use form. - Follow up: Private Physician; When: 1 - 2 days; Reason: Recheck today's complaints. - Problem is new. - Symptoms have improved. Signatures: Dispatcher [employer] EDMS Job Bruce MD MD cha Chretien, Felicia RN RN fc Job Guzman PA PA cp Cordel, Charlene cc3 Corrections: (The following items were deleted from the chart) 04:01 03:35 11/17/2018 03:35 Discharged to Home. Impression: Nausea and vomiting; Upper cc3 abdominal pain, unspecified. Condition is Stable. Forms are Medication Reconciliation Form, Thank You Letter, Antibiotic Education, Prescription Opioid Use. Follow up: Private Physician; When: 1 - 2 days; Reason: Recheck today's complaints. Problem is new. Symptoms have improved. cp
[2018-11-17 03:50] LABS: Urine Blood NEGATIVE (NEG); Urine Glucose NEGATIVE (NEG); Urine Protein NEGATIVE (NEG); Urine Specific Gravity 1.015 (1.005-1.030)
--- NOTE | 2018-11-17 13:33 | RAD REPORT ---
EXAM DESCRIPTION: CT Abdomen and Pelvis With Intravenous Contrast CLINICAL HISTORY: The patient is 38 years old and is Female; ABD PAIN TECHNIQUE: Axial computed tomography images of the abdomen and pelvis with intravenous contrast. S agittal and coronal reformatted images were created and reviewed. This CT exam was performed using one or more of the following dose reduction techniques: automated exposure control, adjustment of t he mA and/or kV according to patient size, and/or use of iterative reconstruction technique. COMPARISON: None. FINDINGS: LUNG BASES: Dependent subsegmental atelectasis versus bibasilar scarring. PLEURAL SPACE: No focal consolidation, pleural effusion or pneumothorax. HEART: Visualized heart is normal. ABDOMEN: LIVER: Unremarkable. No mass. GALLBLADDER AND BILE DUCTS: Prior cholecystectomy. No ductal dilation. PANCREAS: Unremarkable. No mass. No ductal dilation. SPLEEN: There is atrophy of the spleen with splenule. ADRENALS: Unremarkable. No mass. KIDNEYS AND URETERS: Unremarkable. No solid mass. No hydronephrosis. STOMACH AND BOWEL: Contrast is seen throughout the proximal small bowel. No obstruction. No mucosal thickening. PELVIS: APPENDIX: The appendix is seen and is within normal limits BLADDER: Unremarkable. No mass. REPRODUCTIVE: Incompletely characterized pelvic changes with enlarged uterus with endometrial flui d and bilateral adnexal cystic changes measuring up to 1.9 cm on the right. ABDOMEN and PELVIS: INTRAPERITONEAL SPACE: Small amount of pelvic fluid. No free air. BONES/JOINTS: No acute fracture. No dislocation. SOFT TISSUES: Unremarkable. VASCULATURE: Unremarkable. No abdominal aortic aneurysm. LYMPH NODES: Unremarkable. No enlarged lymph nodes. IMPRESSION: 1. No acute abdominal or pelvic abnormality. 2. Incompletely characterized pelvic changes as detailed above, likely physiologic with 1.9 cm righ t ovarian cyst an small amount of free pelvic fluid. 3. Splenic atrophy with small splenule. 4. Prior cholecystectomy. Electronically signed by: Leonel Friend DO 11/17/2018 3:12 AM WEATHERIZATION AND HOUSING INSPECTOR Due to temporary technical issues with the PACS/Fluency reporting system, reports are being signed by the in house radiologist as a courtesy to ensure prompt reporting. The interpreting radiologist is f ully responsible for the content of the report.
== END 2018-11-17 04:01 | disposition home or self-care (01) ==
LOC: ER 22:52
DX: R11.2 Nausea with vomiting, unspecified (principal); F17.210 Nicotine dependence, cigarettes, uncomplicated; J30.2 Other seasonal allergic rhinitis
CPT/HCPCS: 36415; 74177; 80048; 80076; 81003; 81025; 83690; 85025; 96361; 96374; 96375; 99284; C9113; J2405; J3010; J7030; Q9967

== ENCOUNTER 2019-02-23 15:26 | Emergency (ER) | payer OTHER ==
--- OUTSIDE RECORDS SUMMARY | 2019-02-23 15:28 | XMS REPORT | Clinical Summary ---
:1980 Author Organization [facility] Address [address] [place] [address] Care Team Providers Name Role Phone Asked, [...] radiculopathy Willy MATA MD (Primary Dx) after 02/22/2018 Family History Medical History Relation Name Comments [...] Taken Blood Pressure 111/63 08/03/2018 10:14 AM INSURANCE COMPLIANCE ANALYST Pulse 78 08/03/2018 10:14 AM INSURANCE COMPLIANCE ANALYST Temperature - - Respiratory Rate - - Oxygen Saturation - - Inhaled Oxygen Concentration - - Weight 65.8 kg (145 lb) 08/03/2018 10:14 AM INSURANCE COMPLIANCE ANALYST Height 162.6 cm (5' 4") 08/03/2018 10:14 AM INSURANCE COMPLIANCE ANALYST Body Mass Index 24.89 08/03/2018 10:14 AM INSURANCE COMPLIANCE ANALYST Plan of Treatment Health Maintenance Due Date Last Done Comments INFLUENZA VACCINE 04/14/2019 Procedures Procedure Name Priority Date/Time Associated Diagnosis Comments XR LUMBAR SPINE Routine 08/03/2018 10:27 Lumbar radiculopathy Results for this COMPLETE 4+ VW AM INSURANCE COMPLIANCE ANALYST procedure are in the results section. after 02/22/2018 Results XR Lumbar Spine Complete 4+ Vw (08/03/2018 10:27 AM INSURANCE COMPLIANCE ANALYST) Specimen Narrative Performed At Bar spine series of flexion-extension: Normal study.Hemostatic clips [facility] noted in right upper quadrant. Performing Organization Address [facility] [address] [place] [address] after 02/22/2018 Advance Directives Patient has advance care planning documents on file. For more information, please contact:Cristopher Elliott[address] [place] [address]
--- OUTSIDE RECORDS SUMMARY | 2019-02-23 15:28 | XMS REPORT ---
:1980 [facility] [place] [address] [place] [id number] Care Team Providers Name Role Phone Unavailable Unavailable Unavailable Problems This patient has no known problems. Allergies, Adverse Reactions, Alerts This patient has no known allergies or adverse reactions. Medications This patient has no known medications.
[2019-02-23 16:12] LABS: Basophils % 1.1 % (0-1.3); Eosinophils % 1.1 % (0-4.4); Hematocrit 39.6 % (36.0-45.0); Lymphocytes % 26.5 % (15.3-44.8); MPV 8.6 fL (7.6-11.3); Monocytes % 8.5 % (3.3-12.3); RBC Red Blood Cell Count 4.03 M/uL (3.86-4.86)
[2019-02-23 16:31] LABS: Urine Blood TRACE (NEG); Urine Glucose NEGATIVE (NEG); Urine Protein NEGATIVE (NEG); Urine pH 5.5 (5.0-7.0)
[2019-02-23 16:33] LABS: ALT/SGPT 20 U/L (12-78); AST/SGOT 11 U/L (15-37); Albumin 3.8 g/dL (3.4-5.0); Alkaline Phosphatase 52 U/L (45-117); BUN Blood Urea Nitrogen 16 mg/dL (7-18); Bicarbonate 23 mmol/L (21-32); Bilirubin Direct < 0.1 mg/dL (0-0.2); Bilirubin Total 0.2 mg/dL (0.2-1.0); Glucose Level 96 mg/dL (74-106); Magnesium 2.1 mg/dL (1.8-2.4); NT PRO-BNP 44 pg/mL (<125); Potassium 3.6 mmol/L (3.5-5.1); Protein, Total 7.2 g/dL (6.4-8.2); Protime INR 1.03; Sodium Level 140 mmol/L (136-145); Troponin (Emerg Dept Use Only) < 0.02 ng/mL (0.0-0.045)
--- NOTE | 2019-02-23 16:33 | RAD REPORT ---
EXAM DESCRIPTION: RAD - Chest Single View - 02/23/2019 4:05 pm CLINICAL HISTORY: Chest pain, shortness of breath COMPARISON: None. TECHNIQUE: AP portable chest image was obtained 1601 hours . FINDINGS: Lungs are clear. Heart and vasculature are normal. No measurable pleural effusion and no p neumothorax. No acute bony abnormality seen. No acute aortic findings suspected. IMPRESSION: No acute cardiopulmonary process.
--- NOTE | 2019-02-23 17:14 | EDPHYS ---
Physician Documentation [facility] Name: Patric Lin Age: 38 yrs Sex: Female : 1980 Arrival Date: 02/23/2019 Time: 15:30 Bed 13 Private MD: ED Physician Dillan Dang HPI: 02/23 15:42 This 38 yrs old Unknown Female presents to ER via Ambulatory with complaints of jmm Weakness. 15:42 The patient or guardian reports chest pain that is located primarily in the substernal jmm area. The pain radiates to left breast. Associated signs and symptoms: Pertinent positives: shortness of breath. The chest pain is described as aching, a pressure. This is a 38 year old female with a history of GERD that presents to the ED with complaints of left sided substernal chest pain beginning last night which is intermittent. Patient also complains of shortness of breath. Patient states having a similar episode 1 month ago and was evaluated outpatient by Cardio with negative stress test, ekg, and echo. Patient denies fever. Patient also complains of fatigue and weakness. . 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 - Social history:: Smoking status: Patient/guardian denies using tobacco. ROS: 15:42 Constitutional: Negative for fever, chills, and weight loss. jmm 15:42 Cardiovascular: Positive for chest pain. 15:42 Respiratory: Positive for shortness of breath. 15:42 Neuro: Positive for weakness. 15:42 All other systems are negative. Exam: 15:42 Constitutional: This is a well developed, well nourished patient who is awake, alert, jmm and in no acute distress. Head/Face: atraumatic. Eyes: EOMI, no conjunctival erythema appreciated ENT: Moist Mucus Membranes Neck: Trachea midline, Supple Chest/axilla: Normal chest wall appearance and motion. 15:42 Abdomen/GI: Non distended, soft Back: Normal ROM Skin: General appearance color normal MS/ Extremity: Moves all extremities, no obvious deformities appreciated, no edema noted to the lower extremities Neuro: Awake and alert, normal gait Psych: Behavior is normal, Mood is normal, Patient is cooperative and pleasant 15:42 Cardiovascular: Rate: normal, Rhythm: regular. 15:42 ECG was reviewed by the Attending Physician. Vital Signs: 15:34 BP 119 / 69; Pulse 87; Resp 18; Temp 98.3(TE); Pulse Ox 98% on R/A; Weight 66.68 kg; hj Height 5 ft. 4 in. (162.56 cm); Pain 0/10; 17:41 BP 103 / 63; Pulse 66; Resp 17; Pulse Ox 96% on R/A; ae4 15:34 Body Mass Index 25.23 (66.68 kg, 162.56 cm) hj MDM: 15:42 Patient medically screened. [facility] 17:12 Data reviewed: vital signs, nurses notes. Counseling: I had a detailed discussion with heather the patient and/or guardian regarding: the historical points, exam findings, and any diagnostic results supporting the discharge/admit diagnosis, radiology results, the need for outpatient follow up, to return to the emergency department if symptoms worsen or persist or if there are any questions or concerns that arise at home. 17:42 ED course: HEART SCORE = 1, D-DIMER NEGATIVE. Patient advised to follow up with Cardio heather for reevaluation. Patient otherwise given strict return precautions. patient understood and agrees with the plan of care. . 06 15:52 Order name: Basic Metabolic Panel [facility] 02/23 15:52 Order name: CBC with Diff; Complete Time: 16:18 [facility] 02/23 15:52 Order name: LFT's; Complete Time: 16:38 [facility] 02/23 15:52 Order name: Magnesium; Complete Time: 16:38 [facility] 02/23 15:52 Order name: NT PRO-BNP; Complete Time: 16:38 [facility] 02/23 15:52 Order name: PT-INR; Complete Time: 16:38 [facility] 02/23 15:36 Order name: EKG - Nurse/Tech; Complete Time: 15:52 02/23 15:52 Order name: Troponin (emerg Dept Use Only); Complete Time: 16:38 [facility] 02/23 15:52 Order name: XRAY Chest (1 view); Complete Time: 16:38 [facility] 02/23 15:52 Order name: EKG; Complete Time: 15:55 [facility] 02/23 15:52 Order name: D-Dimer; Complete Time: 16:38 [facility] 02/23 15:54 Order name: Basic Metabolic Panel; Complete Time: 16:38 [facility] 02/23 16:25 Order name: Urine Dipstick--Ancillary (enter results); Complete Time: 16:34 02/23 16:25 Order name: Urine --Ancillary (enter results); Complete Time: 16:34 02/23 15:52 Order name: Cardiac monitoring; Complete Time: 15:59 [facility] 02/23 15:52 Order name: IV Saline Lock; Complete Time: 16:00 [facility] 02/23 15:52 Order name: Labs collected and sent; Complete Time: 16:00 [facility] 02/23 15:52 Order name: O2 Per Protocol; Complete Time: 16:00 [facility] 02/23 15:52 Order name: O2 Sat Monitoring; Complete Time: 16:00 [facility] EC:42 Rate is 70 beats/min. Rhythm is regular. QRS [place] is Normal. [place] interval is normal. QRS jmm interval is normal. QT interval is normal. No Q waves. T waves are Normal. No ST changes noted. Administered Medications: No medications were administered Disposition: 02/23/19 17:13 Discharged to Home. Impression: Chest pain, unspecified. - Condition is Stable. - Discharge Instructions: Nonspecific Chest Pain. - Medication Reconciliation Form, Thank You Letter, Antibiotic Education, Prescription Opioid Use form. - Follow up: Abena Painting MD; When: 2 - 3 days; Reason: Recheck today's complaints, Continuance of care, Re-evaluation by your physician. Signatures: Dispatcher [employer] EDMS Alejandro Butt PA PA jmm Joaquin, Henry, RN RN Kwabena Pepper RN RN ae4 Corrections: (The following items were deleted from the chart) 17:44 17:13 02/23/2019 17:13 Discharged to Home. Impression: Chest pain, unspecified. ae4 Condition is Stable. Forms are Medication Reconciliation Form, Thank You Letter, Antibiotic Education, Prescription Opioid Use. Follow up: Abena Painting; When: 2 - 3 days; Reason: Recheck today's complaints, Continuance of care, Re-evaluation by your physician. heather
--- NOTE | 2019-02-23 17:14 | ER ---
Nurse's Notes [facility] Name: Patric Lin Age: 38 yrs Sex: Female : 1980 Arrival Date: 02/23/2019 Time: 15:30 Bed 13 Private MD: Diagnosis: Chest pain, unspecified Presentation: 02/23 15:30 Presenting complaint: Patient states: last week, i wasn't feeling good, went to my PCP because i feel weak, gave me cephalexin PO and got a shot of cortisone shot; right now, i still don't feel good; i feel SOB and my balance if off; denies fever; reports chest pain, squeezing type pain;. Transition of care: patient was not received from another setting of care. 15:30 Method Of Arrival: Ambulatory 15:33 Onset of symptoms was February 23, 2019. Risk Assessment: Do you want to hurt yourself or hj someone else? Patient reports no desire to harm self or others. Initial Sepsis Screen: Does the patient meet any 2 criteria? No. Patient's initial sepsis screen is negative. Does the patient have a suspected source of infection? No. Patient's initial sepsis screen is negative. Care prior to arrival: None. 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 - Social history:: Smoking status: Patient/guardian denies using tobacco. Screenin:41 Abuse screen: Denies threats or abuse. Nutritional screening: No deficits noted. ae4 Tuberculosis screening: No symptoms or risk factors identified. Fall Risk None identified. Assessment: 16:06 Reassessment: Patient states she had "squeezing pain" the previous night while lying in ae4 bed. General: Appears in no apparent distress. comfortable, slender, Behavior is calm, cooperative. Pain: Complains of pain in left lower quadrant. Pain: Complains of pain in anterior aspect of left upper chest and mid-sternal area. Neuro: Neuro: Reports weakness Patient states when writing, "it feels like I have no strength". Cardiovascular: Heart tones S1 S2 present Patient's skin is warm and dry. Rhythm is sinus rhythm. Respiratory: Airway is patent Respiratory effort is even, unlabored, Respiratory pattern is regular, symmetrical, Breath sounds are clear bilaterally. Respiratory: Reports shortness of breath. GI: No signs and/or symptoms were reported involving the gastrointestinal system. : No signs and/or symptoms were reported regarding the genitourinary system. Urine is clear. EENT: No signs and/or symptoms were reported regarding the EENT system. Derm: Skin is pale. Musculoskeletal: Reports Generalized weakness and fatigue. Vital Signs: 15:34 BP 119 / 69; Pulse 87; Resp 18; Temp 98.3(TE); Pulse Ox 98% on R/A; Weight 66.68 kg; hj Height 5 ft. 4 in. (162.56 cm); Pain 0/10; 17:41 BP 103 / 63; Pulse 66; Resp 17; Pulse Ox 96% on R/A; ae4 15:34 Body Mass Index 25.23 (66.68 kg, 162.56 cm) hj ED Course: 15:30 Patient arrived in ED. rg4 15:33 Triage completed. hj 15:36 Arm band placed on right wrist. hj 15:37 Kwabena Napier, ISAAK is Primary Nurse. ae4 15:39 Alejandro Butt PA is PHCP. jmm 15:39 Dillan Dang MD is Attending Physician. m 15:48 EKG done, by ED staff, reviewed by Alejandro JIMENEZ. dh3 16:00 Inserted saline lock: 20 gauge in right antecubital area, using aseptic technique. ae4 Blood collected. 16:07 XRAY Chest (1 view) In Process Unspecified. EDMS 16:10 Placed in gown. Bed in low position. Call light in reach. Side rails up X 1. Cardiac ae4 monitor on. Pulse ox on. NIBP on. Warm blanket given. 17:13 Abena Painting MD is Referral Physician. jmm 17:42 No provider procedures requiring assistance completed. IV discontinued, intact, ae4 bleeding controlled, No redness/swelling at site. Pressure dressing applied. Administered Medications: No medications were administered Outcome: 17:13 Discharge ordered by . heather 17:43 Discharged to home ambulatory. ae4 17:43 Condition: stable 17:43 Discharge instructions given to patient, Instructed on discharge instructions, follow up and referral plans. Demonstrated understanding of instructions, follow-up care. 17:44 Patient left the ED. ae4 Signatures: Dispatcher [employer] EDMS Alejandro Butt PA PA jmm Joaquin, Henry RN RN Mala Castillo 4 Carlotta Orr [facility] Kwabena Napier RN RN ae4 Corrections: (The following items were deleted from the chart) 15:36 15:30 Presenting complaint: Patient states: last week, i wasn't feeling good, went to my PCP because i feel weak, gave me cephalexin PO and got a shot of cortisone shot; right now, i still don't feel good; i feel SOB and my balance if off; denies fever; 15:36 15:34 66.68 kg; Height 5 ft. 4 in.; BMI: 25.2; Pain 0/10; [facility]
--- NOTE | 2019-02-23 21:17 | EKG ---
Test Date: 2019-02-23 Test Time: 15:48:00 Service Advisor: MATT MEASUREMENT RESULTS: Intervals: Rate: 70 VA: 132 QRSD: 92 QT: 370 QTc: 399 [place]: P: 63 VA: 132 QRS: 52 T: 46 INTERPRETIVE STATEMENTS: Normal sinus rhythm Normal ECG Compared to ECG 11/30/2017 20:02:17 Sinus bradycardia no longer present Electronically Signed On 02-23-19 21:17:22 CDT by Chace Zavala
== END 2019-02-23 17:44 | disposition home or self-care (01) ==
LOC: ER 15:26
DX: R07.9 Chest pain, unspecified (principal); K21.9 Gastro-esophageal reflux disease without esophagitis
CPT/HCPCS: 36415; 71045; 80048; 80076; 81003; 81025; 83735; 83880; 84484; 85025; 85379; 85610; 93005; 99284

== ENCOUNTER 2019-05-30 10:16 | Emergency (ER) | payer OTHER ==
--- NOTE | 2019-05-30 11:03 | RAD REPORT ---
EXAM DESCRIPTION: CT - Head Brain Wo Cont - 05/30/2019 10:54 am CLINICAL HISTORY: VISUAL DISTURBANCES Headache, drowsiness COMPARISON: Head Brain Wo Cont dated 09/01/2018; Head Brain Wo Cont dated 11/30/2017 TECHNIQUE: All CT scans are performed using dose optimization technique as appropriate and may inclu de automated exposure control or mA/KV adjustment according to patient size. FINDINGS: No intracranial hemorrhage, hydrocephalus or extra-axial fluid collection.No areas of brai n edema or evidence of midline shift. The paranasal sinuses and mastoids are clear. The calvarium is intact. IMPRESSION: No acute intracranial abnormality.
--- OUTSIDE RECORDS SUMMARY | 2019-05-30 11:22 | XMS REPORT ---
:1980 [facility] Address [address] [place] [address] [address] [place] [address] Care Team Providers Name Role Phone Unavailable Unavailable Unavailable Problems This patient has no known problems. Allergies, Adverse Reactions, Alerts This patient has no known allergies or adverse reactions. Medications This patient has no known medications.
--- OUTSIDE RECORDS SUMMARY | 2019-05-30 11:22 | XMS REPORT | Clinical Summary ---
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 PRESSER Pulse 78 08/03/2018 10:14 AM PIGMENT PRESSER Temperature - - Respiratory Rate - - Oxygen Saturation - - Inhaled Oxygen Concentration - - Weight 65.8 kg (145 lb) 08/03/2018 10:14 AM PIGMENT PRESSER Height 162.6 cm (5' 4") 08/03/2018 10:14 AM PIGMENT PRESSER Body Mass Index 24.89 08/03/2018 10:14 AM PIGMENT PRESSER Plan of Treatment Health Maintenance Due Date Last Done Comments CERVICAL CANCER SCREENING 2003 INFLUENZA VACCINE 04/14/2019 Procedures Procedure Name Priority Date/Time Associated Diagnosis Comments XR LUMBAR SPINE Routine 08/03/2018 10:27 Lumbar radiculopathy Results for this COMPLETE 4+ VW AM PIGMENT PRESSER procedure are in the results section. after 05/29/2018 Results XR Lumbar Spine Complete 4+ Vw (08/03/2018 10:27 AM PIGMENT PRESSER) Specimen Narrative Performed At Bar spine series of flexion-extension: Normal study.Hemostatic clips [facility] noted in right upper quadrant. 

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
[2019-05-30 15:06] VITALS: TEMP 98
[2019-05-30 15:09] VITALS: BP 98/51; O2SAT 100
== END 2019-05-30 14:37 | disposition home or self-care (01) ==
LOC: ER 10:16
DX: H53.9 Unspecified visual disturbance (principal); J30.2 Other seasonal allergic rhinitis
CPT/HCPCS: 70450; 99283